=== PATIENT | female | born 1975 | race Caucasian/White ===

== ENCOUNTER 2019-05-18 14:57 | Outpatient (CLI) | payer OTHER, SELFPAY ==
--- NOTE | 2019-05-18 15:06 | MM_ITS ---
WS: [id number] RIGHT DIGITAL MAMMOGRAPHY WITH CAD CLINICAL INFORMATION: RIGHT AXILLA MASS X 2 MONTHS COMPARISON: 5 15,019 TECHNIQUE: 4 views of the right breast were obtained. FINDINGS: The right breast is composed of heterogeneous fibroglandular density tissue, which can limit the dete ction of small underlying mass lesions. No suspicious focal mass, asymmetry, calcifications, or architectural distortion. No evidence of mikala gnancy. Right breast appears unchanged. Ultrasound right breast is pending. ULTRASOUND BREAST RIGHT TECHNIQUE: Ultrasound right breast focused area of concern. CLINICAL INFORMATION: RIGHT AXILLA MASS X 2 MONTHS COMPARISON: None. FINDINGS: Ultrasound right axilla. A few lymph nodes are noted in the right axilla the largest measures 2.2 x 0 .7 cm with preserved fatty hilum. This is nonspecific but may be reactive. This can be further evalua roney with ultrasound-guided biopsy MM/[place] [id number] BI-RADS: 4A FOLLOW UP: See Report
== END 2019-05-18 14:58 | disposition home or self-care (01) ==
PROVIDERS: Family Provider Family Medicine; PCP Family Medicine; Visit Provider Family Medicine
DX: R22.31 Localized swelling, mass and lump, right upper limb (principal)
CPT/HCPCS: 76642; 77065

== ENCOUNTER 2019-06-18 12:03 | Outpatient (CLI) | payer OTHER, SELFPAY ==
--- NOTE | 2019-06-18 12:15 | US_ITS ---
WS: [id number] ULTRASOUND RIGHT BREAST HISTORY: Possible biopsy RIGHT axillary lymph nodes. COMPARISON: 05/18/2019 TECHNIQUE: 2-D and Doppler. The lymph nodes in the RIGHT axilla are very benign in appearance. Normal size with normal fatty gianni and cortex. There are no suspicious lymph nodes identified. Lymph nodes are smaller size as compared to the prior study suggesting resolved a mild inflammatory process. US/US breast RT limited* [id number] IMPRESSION: BI-RADS: 1-Negative FOLLOW-UP: 1 Year Follow-up No biopsy will be performed today of the RIGHT axillary lymph nodes. These lymp h nodes are extremely normal in appearance with no enlargement. Recommend jesus alberto nued yearly annual screening mammography.
== END 2019-06-18 12:04 | disposition home or self-care (01) ==
LOC: RAD 12:09
PROVIDERS: Family Provider Family Medicine; PCP Family Medicine; Visit Provider Family Medicine
DX: R92.8 Other abnormal and inconclusive findings on diagnostic imaging of breast (principal)
CPT/HCPCS: 19083; 76642

== ENCOUNTER 2021-10-01 15:15 | Outpatient (CLI) | payer BC, SELFPAY ==
--- NOTE | 2021-10-01 15:23 | MM_ITS ---
WS: [id number] BILATERAL 3D TOMOSYNTHESIS DIGITAL SCREENING MAMMOGRAM WITH CAD CLINICAL INFORMATION: SCREENING HISTORY: Screening mammogram. No current complaints. COMPARISON: May 22, 2019 and TECHNIQUE: Bilateral CC and MLO. FINDINGS: The breast are composed of extremely dense tissue, which can limit the detection of small underlying mass lesions. A few tiny incidental punctate calcifications. No suspicious focal mass, asymmetry, duncan cifications, or architectural distortion. No evidence of malignancy. MM/[place] [id number] IMPRESSION: BI-RADS: 2-Benign FOLLOW UP: 1 Year Follow-up Recommend return to annual screening mammography.
== END 2021-10-01 15:16 | disposition home or self-care (01) ==
PROVIDERS: PCP Family Medicine; Visit Provider Family Medicine
DX: Z12.31 Encounter for screening mammogram for malignant neoplasm of breast (principal)
CPT/HCPCS: 77063; 77067

== ENCOUNTER 2022-12-09 12:52 | Outpatient (CLI) | payer BC, SELFPAY ==
--- NOTE | 2022-12-09 13:01 | MM_ITS ---
WS: [id number] BILATERAL SCREENING DIGITAL TOMOSYNTHESIS MAMMOGRAM WITH CAD HISTORY: SCREEN COMPARISON: 10/01/2021 and 05/18/2019 Bilateral CC and MLO views with tomosynthesis and synthetic mammography submitted. Computer aided det ection analyzed. Breast composition: The breasts are extremely dense, which lowers the sensitivity of mammography. No suspicious masses, microcalcifications or architectural distortion. IMPRESSION: MM/[place] [id number] BI-RADS: 1-Negative FOLLOW UP: 1 Year Follow-up
== END 2022-12-09 12:53 | disposition home or self-care (01) ==
PROVIDERS: PCP Family Medicine; Visit Provider Family Medicine
DX: Z12.31 Encounter for screening mammogram for malignant neoplasm of breast (principal)
CPT/HCPCS: 77063; 77067

== ENCOUNTER 2024-04-25 10:58 | Outpatient (CLI) | payer BC, SELFPAY ==
--- NOTE | 2024-04-25 11:04 | MM_ITS ---
WS: [id number] SCREENING DIGITAL BREAST TOMOSYNTHESIS MAMMOGRAM WITH CAD HISTORY: SCREENING COMPARISON: 12/09/2022, 10/01/2021, 08/02/2018 Bilateral CC and MLO with tomosynthesis and synthetic mammography submitted. Computer aided detection analyzed. Breast composition: The breasts are extremely dense, which lowers the sensitivity of mammography. New and increasing area of density in the medial superior LEFT breast needs to be further evaluated. RIGHT breast is negative. MM/MM scr tomosynthesis [id number] IMPRESSION: BI-RADS: 0 - Incomplete: Need additional imaging evaluation FOLLOW UP: Need Additional Imaging LEFT breast: Spot compression views (CC and MLO). True ML. Ultrasound to follow if abnormality persists.
== END 2024-04-25 10:59 | disposition home or self-care (01) ==
LOC: RAD 11:00
PROVIDERS: PCP Family Medicine; Visit Provider Family Medicine
DX: Z12.31 Encounter for screening mammogram for malignant neoplasm of breast (principal); R92.343 Mammographic extreme density, bilateral breasts; R92.8 Other abnormal and inconclusive findings on diagnostic imaging of breast
CPT/HCPCS: 77063; 77067

== ENCOUNTER 2024-05-21 14:10 | Outpatient (CLI) | payer BC, SELFPAY ==
--- NOTE | 2024-05-21 14:35 | MM_ITS ---
WS: [id number] ADDITIONAL VIEWS LEFT MAMMOGRAM WITH DIGITAL BREAST TOMOSYNTHESIS. LEFT breast ultrasound, complete. HISTORY: ABNORMAL MAMMOGRAM COMPARISON: 04/25/2024, 12/09/2022 and 10/01/2021 Compression views LEFT breast in CC, MLO projections and true ML submitted with digital breast tomosynthesis and SM. Breast composition: The breasts are extremely dense, which lowers the sensitivity of mammography. Breasts are extremely dense. There are partially obscured masses and a few scattered calcifications throughout the breast. Due to the extreme density of the breast ultrasound will be performed of the entire breast. Possible 7 mm ovoid mass upper outer quadrant. There is some scattered calcifications also but these appear more dispersed on the lateral projection. LEFT breast ultrasound, complete. Numerous small cysts and complex cysts are scattered throughout the breast. The largest measures 1.2 x 0.9 x 0.4 cm at 2:00, 2 cm from the nipple. There is an additional complex cyst at 4:00, retroareolar measuring 0.9 x 0.9 x 0.7 cm. There are scattered additional smaller cysts throughout the breast. MM/MM diag LT tomosynthesis [id number] IMPRESSION: BI-RADS: 3 - Probably Benign FOLLOW UP: 6 Month Follow-up Recommend 6-month LEFT breast ultrasound follow-up to reevaluate the complex cy sts. Due to the multiple scattered cysts/complex cysts and breast density recom mend entire LEFT breast ultrasound.
== END 2024-05-21 14:11 | disposition home or self-care (01) ==
PROVIDERS: PCP Family Medicine; Visit Provider Family Medicine
DX: R92.8 Other abnormal and inconclusive findings on diagnostic imaging of breast (principal); R92.342 Mammographic extreme density, left breast; R92.1 Mammographic calcification found on diagnostic imaging of breast; N60.12 Diffuse cystic mastopathy of left breast
CPT/HCPCS: 76641; 77061; G0279